=== PATIENT | female | born 1950 | race Caucasian/White ===

== ENCOUNTER → 2022-06-14 11:20 | Outpatient (CLI) | payer OTHER, SELFPAY ==
--- NOTE | ~2022-06-14 | MM_ITS ---
EXAMINATION: MM screening [facility] BI w héctor HISTORY: Screening TECHNIQUE: Craniocaudal and mediolateral oblique 3-D tomosynthesis images were obtained and synthetic 2-D images were generated. CAD analysis was submitted and interpreted. COMPARISON: Comparison to multiple prior studies sequentially, with oldest reviewed study dated 03/2017. BREAST PARENCHYMAL COMPOSITION: There are scattered areas of fibroglandular density. FINDINGS: There is no evidence of suspicious mass, calcification, or architectural distortion to sugg est malignancy in either breast. There has been no suspicious interval change. IMPRESSION: 1. No mammographic evidence of malignancy. 2. Recommend routine screening mammography in one year. BI-RADS Category 1: Negative Reviewed, dictated and finalized at [facility].
== END ==
PROVIDERS: PCP Family Medicine Adolescent Medicine; Visit Provider Family Medicine Adolescent Medicine
DX: Z12.31 Encounter for screening mammogram for malignant neoplasm of breast (principal)
CPT/HCPCS: 77063; 77067

== ENCOUNTER 2022-07-14 11:40 | Emergency (ER) | payer OTHER, SELFPAY ==
--- NOTE | ~2022-07-14 | CT_ITS ---
EXAMINATION: CT brain wo con DATE: 07/14/2022 13:26 INDICATION: Patient fell today and struck head on door. Posterior swelling TECHNIQUE: Computed tomography (CT) of the head was performed without intravenous contrast. The mA wa s adjusted according to patient size. Iterative reconstruction technique was employed. Exam dose: 60 5.33 mGy-cm total exam DLP. COMPARISON: None FINDINGS: No intracranial mass lesion or hemorrhage or cerebrovascular accident. No midline shift or mass effect. Normal ventricular size. Bilateral carotid siphon internal carotid artery calcifications. No subdural or epidural hematoma. The mastoid air cells and included paranasal sinuses are normally developed and aerated. Mild posterior right parietal cephalhematoma. No fracture or bone destruction of the cranial vault. N o intracranial coup or contrecoup injury is noted. IMPRESSION: Mild posterior right parietal cephalohematoma; no skull fracture or acute intracranial f inding Cerebral atherosclerosis Reviewed, dictated and finalized at [facility] Reviewed, dictated and finalized at [facility]. [employer] WORK[employer] IMPRESSION: Mild posterior right parietal cephalohematoma; no skull fracture o r acute intracranial finding Cerebral atherosclerosis
[2022-07-14 11:41] VITALS: BP 163/80; PULSE 65; RESP 18; TEMP 36.8; O2SAT 100
--- NOTE | 2022-07-14 13:26 | PC.NURSE ---
Patient off unit to CT.
--- NOTE | 2022-07-14 14:14 | ED.FALL ---
HPI - Fall General Chief Complaint: Fall Stated Complaint: fall Time Seen by Provider: 07/14/22 13:12 History of Present Illness HPI Narrative: Pt slipped on mat at work and fell. Pt landed on bottom and then struck head on wall. Pt denies LOC or neck pain. Pt says she has bump on back of head. Pt feels a little sore in her shoulders but thinks she just got jose manuel with the fall. Pt ambulatory without pain. Related Data Allergies Allergy/AdvReac Type Severity Reaction Status Date / Time No Known Allergies Verified 07/14/22 11:49 Review of Systems Review of Systems: All systems reviewed & are unremarkable except as noted in HPI and below PMFSH Surgical History Surgical History (Updated 03/29/22 @ 09:24 by Jasper Farias MD) H/O: hysterectomy Still has ovaries Family History Family History (Updated 03/29/22 @ 08:41 by Palmira Peguero MA) Father Family history of cardiovascular disease, Onset Age: 72 Acute myocardial infarction Heart disease Hypertension Daughter Asthma Sibling Carcinoma of colon Colon polyp Grandparent Cerebrovascular accident Diabetes mellitus Son Depression Social History Social History (Updated 03/29/22 @ 08:41 by Palmira Peguero MA) Smoking status: Former smoker Second hand tobacco smoke exposure: Yes Smoking end date: 08/29/80 Alcohol intake: never Substance use: never Substance use type: does not use Gender identity (if verbalized by the patient): Female Sexual Orientation (if Verbalized by the Patient): Straight or Heterosexual Spiritual care concerns: No Agree to blood products: Yes Exam Const: General: healthy appearing Nutritional Appearance: well nourished Orientation/consciousness: patient oriented x3 Limitations: no limitations HENMT: Head: hematoma right occipital Mouth: Yes Normal oral and palatal mucosa present Eyes: Pupils: Equal, round and reactive pupils present EOM: EOMs intact bilaterally Resp: Effort & Inspection: normal respiratory effort Auscultation: clear to auscultation bilaterally Cardio: Rate: regular rate Rhythm: regular rhythm GI: Auscultation: normal bowel sounds Skin: General skin exam: normal color Rashes: no rashes Neuro: General: patient oriented x3, moves all extremities, no meningeal signs, no focal motor deficits and CN's II-XI intact bilaterally Cranial nerves: Yes Nystagmus not present Speech: normal speech Gait exam (Neuro): Normal gait present Extrem: General: normal to inspection and no clubbing, cyanosis or edema Psych: Mental Status: mental status grossly normal Affect: normal affect Attitude: cooperative Course Vital Signs Vital signs: Vital Signs Temperature 98.2 F 07/14/22 11:41 Pulse Rate 65 07/14/22 11:41 Respiratory Rate 18 07/14/22 11:41 Blood Pressure 163/80 H 07/14/22 11:41 Pulse Oximetry 100 07/14/22 11:41 Temperature 98.2 F 07/14/22 11:41 Pulse Rate 65 07/14/22 11:41 Respiratory Rate 18 07/14/22 11:41 Blood Pressure 163/80 H 07/14/22 11:41 Pulse Oximetry 100 07/14/22 11:41 Discharge Plan Discharge Clinical Impression: Head injury, Hematoma Patient Disposition: Home, Self-Care Condition: Stable Instructions: Antibiotic Form, Concussion (ED), Head Injury (ED) Prescriptions: No Action atorvastatin 40 mg tablet 40 mg PO DAILY Qty: 90 1RF Follow-up/Referrals: Jasper Farias MD [Primary Care Provider] -
== END 2022-07-14 14:46 | disposition home or self-care (01) ==
PROVIDERS: Emergency Provider Emergency Medicine; PCP Family Medicine Adolescent Medicine
DX: S00.03XA Contusion of scalp, initial encounter (principal); W01.0XXA Fall on same level from slipping, tripping and stumbling without subsequent striking against object, initial encounter
CPT/HCPCS: 70450; 99284

== ENCOUNTER 2024-11-20 21:45 | Emergency (ER) | payer MEDICARE, SELFPAY ==
--- OUTSIDE RECORDS SUMMARY | 2024-11-20 21:48 | XMS_ITS | Clinical Summary ---
Author Organization [facility] Address [address] [place] [id number] Care Team Providers Care Advertising Clerk Name Role Phone Unavailable Primary Care Provider Unavailabl e Allergies No known active allergies Medications hydrocortisone 1 % creamIndications :Eczema, unspecified type Apply topically 2 (two) times daily. 120 g 0 Active Active Problems Problem Noted Date Diagnosed Date Heart murmur 10/19/2019 Eczema, unspecified type 10/19/2019 Insomnia, unspecified type 10/19/2019 Overweight 10/19/2019 Hyperlipidemia, unspecified hyperlipidemia type 10/19/2019 Immunizations Name Administration Dates Next Due Influenza Adult (Generic) 10/12/2019(Deferred: P atient Refused) Family History Medical History Relation Comments Heart Disease Father Hyperlipidemia Father Diabetes Maternal Grandfather Heart Disease Maternal Grandmother Hypertension Mother Osteoporosis Mother Relation Status Comments Father Maternal Grandfather Maternal Grandmother Mother Social History Tobacco Use Types Packs/Day Years Used Date Smoking Tobacco: Former Cigarettes 3 20 1 961 - 1980 Smokeless Tobacco: Never Alcohol Use Standard Drinks/Week Comments Never 0 (1 standard drink = 0.6 oz pur e alcohol) AUDIT-C Answer Date Recorded Frequency of Alcohol Consumption Never 10/19/2019 Average Number of Drinks Not on file 020 Frequency of Binge Drinking Not on file 09/30 PHQ-2 Answer Date Recorded PHQ-2 Score 0 10/12/2019 Comments Unknown Sex and Gender Information Value Date Recorded Sex Assigned at Not on file Legal Sex Female 3:00 PM CDT Gender Identity Not on file Sexual Orientation Not on file Last Filed Vital Signs Vital Sign Reading Time Taken Comments Blood Pressure 132/64 10/19/2019 10:11 AM [employer] Pulse 70 10/19/2019 10:11 AM [employer] Temperature - - Respiratory Rate - - Oxygen Saturation 98% 10/19/2019 10:11 AM [employer]ER Inhaled Oxygen Concentration - - Weight 73.5 kg (162 lb) 10/19/2019 10:11 AM [employer] Height 157.5 cm (5' 2 ) 10/19/2019 10:11 AM [employer] CLE[employer]ER Body Mass Index 29.63 10/19/2019 10:11 AM KIL[employer] CLE[employer]ER Plan of Treatment Health Maintenance Due Date Last Done Comments Colorectal Cancer Screening Colonoscopy (10 Years) 1950 Hepatitis C 1968 DTaP, Tdap and Td Vaccines ( 1 - Tdap) 1969 Mammogram Screening 1990 Zoster Vaccines (1 of 2) 2000 Annual Medicare Wellness Visit 2015 Dexa Scan (General) 2015 Pneumococcal Vaccine: 65+ Ye ars (1 of 1 - PCV) 2015 COVID-19 Vaccine (2023-2 5 season) 2024 Influenza Adult (#1) 2024 RSV Immunization or 60+ Years (1 - 1-dose 75+ series) 2025 Meningococcal B Vaccine Aged Out No l onger eligible based on patient's age to complete this topic Meningococcal Vaccine Aged Out No rinku mariel eligible based on patient's age to complete this topic RSV Immunizations Under 20 Months Aged Out No longer eligible based on patient's age to complete this topic Insurance ESSENCE
--- OUTSIDE RECORDS SUMMARY | 2024-11-20 21:48 | XMS_ITS | Data Portability ---
Author Organization [facility], Main Office Address [address] [place] [address] Assessment No assessment recorded. Plan of Treatment Reminders Order Date Submit Date Provider Last Modified By Organization Details Last Modified Time Details Appointments None recorded. Lab vitamin B12 + folate, serum or blood 024 [facility] [place] 2 [facility] (Lab), [address] [place], [address], 4 10:25:10 vitamin D3, 25-hydrox y, serum [address] (Lab), [address] [place], [address], 4 10:25:11 magnesium , serum or plasma 024 024 [facility] (Lab), [address] [place], [address], 4 08:20:40 lipid panel, serum 024 024 [facility] (Lab), [address] [place], [address], 4 08:20:37 CBC w/ auto diff 024 024 [facility] (Lab), [address] [place], [address], 4 08:20:36 TSH, serum or plasma [address] (Lab), [address] [place], [address], 4 10:25:10 glycohemo globin, total, blood 024 024 [email or web address] 2 [facility] (Lab), [address] [place], [address], 4 10:25:10 C[facility], serum or plasma [facility] [address] [place], [address], 4 08:20:37 Referral None recorded. Procedures None recorded. Surgeries None recorded. Imaging None recorded. Medication Orders None recorded. Patient TargetsNo targets recorded. Patient InstructionsNo instructions recorded. Reason for Referral None Reported. Results Created Date Observation Date Name Description Value Unit Range Abnormal Flag Note LastModifiedBy Organization Detail LastModifiedTime 05/18/20 24 05/18/2024 CBC WITH DIFFE RENTI AL/PL ATELE T WBC 6.7 x10e3 /uL 3.4-10 .8 normal Not Available [facility] ([facility]) [address] [place], [address], 05/19/2024 08:20:36 05/18/20 24 05/18/2024 CBC WITH DIFFE RENTI AL/PL ATELE T RBC 4.23 x10e6 /uL 3.77-5 .28 normal Not Available [facility] ([facility]) [address] [place], [address], 05/19/2024 08:20:36 05/18/20 24 05/18/2024 CBC WITH DIFFE RENTI AL/PL ATELE T hemoglobin 12.4 g/dL 11.1-1 5.9 normal Not Available [facility] ([facility]) [address] [place], [address], 05/19/2024 08:20:36 05/18/20 24 05/18/2024 CBC WITH DIFFE RENTI AL/PL ATELE T hematocrit 39.2 % 34.0-4 6.6 normal Not Available [facility] ([facility]) [address] [place], [address], 05/19/2024 08:20:36 05/18/20 24 05/18/2024 CBC WITH DIFFE RENTI AL/PL ATELE T MCV 93 fL 79-97 normal Not Available [facility] ([facility]) [address] [place], [address], 05/19/2024 08:20:36 05/18/20 24 05/18/2024 CBC WITH DIFFE RENTI AL/PL ATELE T MCH 29.3 pg 26.6-3 3.0 normal Not Available [facility] ([facility]) [address] [place], [address], 05/19/2024 08:20:36 05/18/20 24 05/18/2024 CBC WITH DIFFE RENTI AL/PL ATELE T MCHC 31.6 g/dL 31.5-3 5.7 normal Not Available [facility] ([facility]) [address] [place], [address], 05/19/2024 08:20:36 05/18/20 24 05/18/2024 CBC WITH DIFFE RENTI AL/PL ATELE T RDW 13.1 % 11.7-1 5.4 Not Available [facility] ([facility]) [address] [place], [address], 05/19/2024 08:20:36 05/18/20 24 05/18/2024 CBC WITH DIFFE RENTI AL/PL ATELE T platelets 237 x10e3 /uL 150-45 0 normal Not Available [facility] ([facility]) [address] [place], [address], 05/19/2024 08:20:36 05/18/20 24 05/18/2024 CBC WITH DIFFE RENTI AL/PL ATELE T neutrophils 64 % not estab. normal Not Available [facility] ([facility]) [address] [facility], [place], [address], 05/19/2024 08:20:36 05/18/20 24 05/18/2024 CBC WITH DIFFE RENTI AL/PL ATELE T lymphs 25 % not estab. normal Not Available [facility] ([facility]) [address] [facility], [place], [address], 05/19/2024 08:20:36 05/18/20 24 05/18/2024 CBC WITH DIFFE RENTI AL/PL ATELE T monocytes 6 % not estab. normal Not Available [facility] ([facility]) [address] [facility], [place], [address], 05/19/2024 08:20:36 05/18/20 24 05/18/2024 CBC WITH DIFFE RENTI AL/PL ATELE T eos 4 % not estab. normal Not Available [facility] ([facility]) [address] [facility], [place], [address], 05/19/2024 08:20:36 05/18/20 24 05/18/2024 CBC WITH DIFFE RENTI AL/PL ATELE T basos 1 % not estab. normal Not Available [facility] ([facility]) [address] [facility], [place], [address], 05/19/2024 08:20:36 05/18/20 24 05/18/2024 CBC WITH DIFFE RENTI AL/PL ATELE T immature cells [employer] Not Available [facility] ([facility]) [address] [facility], [place], [address], 05/19/2024 08:20:36 05/18/20 24 05/18/2024 CBC WITH DIFFE RENTI AL/PL ATELE T neutrophils (absolute) 4.2 x10e3 /uL 1.4-7. 0 normal Not Available [facility] ([facility]) [address] [facility], [place], [address], 05/19/2024 08:20:36 05/18/20 24 05/18/2024 CBC WITH DIFFE RENTI AL/PL ATELE T lymphs (absolute) 1.7 x10e3 /uL 0.7-3. 1 normal Not Available [facility] ([facility]) [address] [facility], [place], [address], 05/19/2024 08:20:36 05/18/20 24 05/18/2024 CBC WITH DIFFE RENTI AL/PL ATELE T monocytes(ab solute) 0.4 x10e3 /uL 0.1-0. 9 normal Not Available [facility] ([facility]) [address] [facility], [place], [address], 05/19/2024 08:20:36 05/18/20 24 05/18/2024 CBC WITH DIFFE RENTI AL/PL ATELE T eos (absolute) 0.3 x10e3 /uL 0.0-0. 4 normal Not Available [facility] ([facility]) [address] [facility], [place], [address], 05/19/2024 08:20:36 05/18/20 24 05/18/2024 CBC WITH DIFFE RENTI AL/PL ATELE T baso (absolute) 0.1 x10e3 /uL 0.0-0. 2 normal Not Available [facility] ([facility]) [address] [place], [address], 05/19/2024 08:20:36 05/18/20 24 05/18/2024 CBC WITH DIFFE RENTI AL/PL ATELE T immature granulocytes 0 % not estab. Not Available [facility] ([facility]) [address] [facility], [place], [address], 05/19/2024 08:20:36 05/18/20 24 05/18/2024 CBC WITH DIFFE RENTI AL/PL ATELE T immature grans (abs) 0.0 x10e3 /uL 0.0-0. 1 Not Available [facility] ([facility]) [address] [facility], [place], [address], 05/19/2024 08:20:36 05/18/20 24 05/18/2024 CBC WITH DIFFE RENTI AL/PL ATELE T NRBC [employer] Not Available [facility] ([facility]) [address] [facility], [place], [address], 05/19/2024 08:20:36 05/18/20 24 05/18/2024 CBC WITH DIFFE RENTI AL/PL ATELE T hematology comments: [employer] Not Available [facility] ([facility]) [address] [facility], [place], [address], 05/19/2024 08:20:36 05/18/20 24 05/19/2024 COMP. METAB OLIC PANEL (14) glucose 99 mg/dL 70-99 normal Not Available [facility] ([facility]) [address] [facility], [place], [address], 05/19/2024 08:20:37 05/18/20 24 05/19/2024 COMP. METAB OLIC PANEL (14) BUN 13 mg/dL 8-27 normal Not Available [facility] ([facility]) [address] [place], [address], 05/19/2024 08:20:37 05/18/20 24 05/19/2024 COMP. METAB OLIC PANEL (14) creatinine 0.81 mg/dL 0.57-1 .00 normal Not Available [facility] ([facility]) [address] [place], [address], 05/19/2024 08:20:37 05/18/20 24 05/19/2024 COMP. METAB OLIC PANEL (14) eGFR 76 mL/mi n/1.7 3 >59 normal Not Available [facility] ([facility]) [address] [place], [address], 05/19/2024 08:20:37 05/18/20 24 05/19/2024 COMP. METAB OLIC PANEL (14) BUN/creatini ne ratio 16 12-28 normal Not Available [facility] ([facility]) [address] [place], [address], 05/19/2024 08:20:37 05/18/20 24 05/19/2024 COMP. METAB OLIC PANEL (14) sodium 142 mmol/ L 134-14 4 normal Not Available [facility] ([facility]) [address] [place], [address], 05/19/2024 08:20:37 05/18/20 24 05/19/2024 COMP. METAB OLIC PANEL (14) potassium 4.1 mmol/ L 3.5-5. 2 normal Not Available [facility] ([facility]) [address] [facility] [place], [address], 05/19/2024 08:20:37 05/18/20 24 05/19/2024 COMP. METAB OLIC PANEL (14) chloride 106 mmol/ L 96-106 normal Not Available [facility] ([facility]) [address] [facility] [place], [address], 05/19/2024 08:20:37 05/18/20 24 05/19/2024 COMP. METAB OLIC PANEL (14) carbon dioxide, total 24 mmol/ L 20-29 normal Not Available [facility] ([facility]) [address] [facility] [place], [address], 05/19/2024 08:20:37 05/18/20 24 05/19/2024 COMP. METAB OLIC PANEL (14) calcium 9.1 mg/dL 8.7-10 .3 normal Not Available [facility] ([facility]) [address] [facility] [place], [address], 05/19/2024 08:20:37 05/18/20 24 05/19/2024 COMP. METAB OLIC PANEL (14) protein, total 6.6 g/dL 6.0-8. 5 normal Not Available [facility] ([facility]) [address] [facility] [place], [address], 05/19/2024 08:20:37 05/18/20 24 05/19/2024 COMP. METAB OLIC PANEL (14) albumin 4.0 g/dL 3.8-4. 8 normal Not Available [facility] ([facility]) [address] [facility] [place], [address], 05/19/2024 08:20:37 05/18/20 24 05/19/2024 COMP. METAB OLIC PANEL (14) globulin, total 2.6 g/dL 1.5-4. 5 Not Available [facility] ([facility]) [address] [facility] [place], [address], 05/19/2024 08:20:37 05/18/20 24 05/19/2024 COMP. METAB OLIC PANEL (14) bilirubin, total 0.2 mg/dL 0.0-1. 2 normal Not Available [facility] ([facility]) [address] [facility] [place], [address], 05/19/2024 08:20:37 05/18/20 24 05/19/2024 COMP. METAB OLIC PANEL (14) alkaline phosphatase 75 IU/L 44-121 normal Not Available [facility] ([facility]) [address] [facility] [place], [address], 05/19/2024 08:20:37 05/18/20 24 05/19/2024 COMP. METAB OLIC PANEL (14) AST (SGOT) 29 IU/L 0-40 normal Not Available [facility] ([facility]) [address] [facility] [place], [address], 05/19/2024 08:20:37 05/18/20 24 05/19/2024 COMP. METAB OLIC PANEL (14) ALT (SGPT) 15 IU/L 0-32 normal Not Available [facility] ([facility]) [address] [facility] [place], [address], 05/19/2024 08:20:37 05/18/20 24 05/19/2024 LIPID PANEL cholesterol, total 231 mg/dL 100-19 9 above high normal Not Available [facility] ([facility]) [address] [facility] [place], [address], 05/19/2024 08:20:37 05/18/20 24 05/19/2024 LIPID PANEL triglyceride s 133 mg/dL 0-149 normal Not Available [facility] ([facility]) [address] [place], [address], 05/19/2024 08:20:37 05/18/20 24 05/19/2024 LIPID PANEL HDL cholesterol 58 mg/dL >39 normal Not Available [facility] ([facility]) [address] [facility] [place], [address], 05/19/2024 08:20:37 05/18/20 24 05/19/2024 LIPID PANEL VLDL cholesterol cruzito 24 mg/dL 5-40 Not Available [facility] ([facility]) [address] [place], [address], 05/19/2024 08:20:37 05/18/20 24 05/19/2024 LIPID PANEL LDL chol calc ([facility]) 149 mg/dL 0-99 above high normal Not Available [facility] ([facility]) [address] [place], [address], 05/19/2024 08:20:37 05/18/20 24 05/19/2024 LIPID PANEL LDL calc comment: [employer] Not Available [facility] ([facility]) [address] [place], [address], 05/19/2024 08:20:37 05/18/20 24 05/19/2024 HEMOG LOBIN A1C hemoglobin A1C 5.5 % 4.8-5. 6 normal Predi abete s: 5.7 - 6.4 Diabe norah: >6.4 Glyce allegra contr ol for adult s with diabe norah: <7.0 Not Available [facility] ([facility]) [address] [place], [address], 05/19/2024 08:20:38 05/18/20 24 05/19/2024 TSH TSH 1.250 uIU/m L 0.450- 4.500 normal Not Available [facility] ([facility]) [address] [facility], [place], [address], 05/19/2024 08:20:38 05/18/20 24 05/19/2024 VITAM IN D, 25-HY DROXY vitamin D, 25-hydroxy 20.8 NG/mL 30.0-1 00.0 below low normal Vitam in D defic iency has been defin ed by the Insti tute of Medic ine and an Endoc rine Socie ty pract ice guide line as a level of serum 25-OH vitam in D less than 20 ng/mL (1,2) . The Endoc rine Socie ty went on to [facility] er defin e vitam in D insuf ficie ncy as a level betwe en 21 and 29 ng/mL (2). 1. IOM (Inst itute of Medic ine). 2009. Dieta ry refer ence luzmaria es for calci um and D. Chandana genao [place]: The Natio nal [facility] . 2. Cody restrepo MF, Tono wiggins [place], Francoise off-F errar i HENRIQUEZ, et al. Evalu ation , treat ment, and preve ntion of vitam in D defic iency : an Endoc rine Socie ty clini cruzito pract ice guide line. JCEM. 2010; 96(7) :1911 -30. Not Available [facility] ([facility]) [address] [facility], [place], [address], 05/19/2024 08:20:39 05/18/20 24 05/19/2024 VITAM IN B12 vitamin B12 427 pg/mL 232-12 45 normal Not Available [facility] ([facility]) [address] [facility], [place], [address], 05/19/2024 08:20:39 05/18/20 24 05/19/2024 MAGNE SIUM magnesium 2.2 mg/dL 1.6-2. 3 normal Not Available [facility] ([facility]) [address] [facility], [place], [address], 05/19/2024 08:20:40 Result Notes None recorded. Problems Name Problem SNOMED Code Status Onset Date Resolution Date Notes Provider Name and Address Organization Details Recorded Time Foot callus 019098495 Active 2021 Not Available [facility] 3 16:11:07 Rosacea 407004246 Active Not Available [facility] 3 16:11:07 Multiple skin tags 015285266 Active Not Available [facility] 3 16:11:07 Hyperlipidemi a 77149902 Active Not Available [facility] 3 16:11:07 Urinary tract infectious disease 70319973 Active Not Available [facility] 3 16:11:08 Dystrophia unguium 14977933 Active 2021 Not Available [facility] 3 16:11:08 Adult health examination Active 2023 MEGHNA Diaz [address], [place], [address] , [employer] [facility] [employer] 4 10:29:57 At increased risk of nutritional deficit 973058574 Active 2023 MEGHNA Diaz [address], [place], [address] , [employer] [facility] [employer] 4 10:32:36 Vitamin D below reference range 403152811 Active 2023 MEGHNA Diaz [address], [place], [address] , [facility] 4 22:28:47 Problem Notes None recorded. Procedures Surgical History Date Name Laterality Status Provider Name and Address Organization Details Recorded Time Hysterectomy, Partial completed Not Available [facility] 10/27/2022 16:10:49 Imaging Results None recorded. Procedure Notes None recorded. Medical Equipment None Reported. Allergies No known drug allergies Medications Name Sig Start Date Stop Date Status Note LastModified by Organization Details LastModified Time ammonium lactate 12 % lotion Apply 1 applicati on every day by topical route as needed. 05/18 completed Not Available Not Available Not Available desoximetas one 0.05 % topical cream APPLY A THIN LAYER TO THE AFFECTED AREA(S) BY TOPICAL ROUTE 2 TIMES PER DAY ; RUB IN GENTLY AND COMPLETEL Y 05/18 completed Not Available Not Available Not Available triamcinolo ne acetonide 0.1 % topical cream APPLY A THIN LAYER TO THE AFFECTED AREA(S) BY TOPICAL ROUTE 2 TIMES PER DAY 05/18 completed Not Available Not Available Not Available cephalexin 500 mg capsule active Not Available Not Available Not Available rosuvastati n 10 mg tablet Take 1 tablet every day by oral route in the morning for 30 days, for high chol. 2023 active Not Available Not Available Not Avai lable cholecalcif karen (vitamin D3) 25 mcg (1,000 unit) tablet Take 1 tablet every day by oral route with meal(s) for 30 days. 2023 active Not Available Not Available Not Avai lable Vitals Date Recorded Heart rate Systolic blood pressure Diastolic blood pressure Provider Name and Address Organization Details Last Updated DateTime 05/17/2022 77 /min 144 mm[Hg] 70 mm[Hg] Not Available [facility] 10/27/2022 16:10:55 Date Recorded Body weight Body temperature Heart rate Oxygen saturation Oxygen saturation in Arterial blood by Pulse oximetry Systolic blood pressure Diastolic blood pressure Provider Name and Address Organization Details Last Updated DateTime 4 56565.6 3 g 98 [degF] 88 /min 97 % 97 % 158 mm[Hg] 68 mm[Hg] Lisa Newby RN [facility] 4 10:20:04 Social History Question Answer Notes LastModified by Organizat ion Details LastModified Time Tobacco Smoking Status Former Smoker Lisa Newby RN null, [place] [facility] 05/18/2024 10:18:01 What Is Your Occupation? Michael [id number] Information not available 10/27/2022 Sex: Unknown Functional Status None recorded. Mental Status None recorded. Family History Relationship Description Onset Age of this Age Resolved Age Notes LastModified by Organization Details LastModified Time Paternal Grandfather Diabetes mellitus [id number] Not available 10/27/2022 16:10:49 Maternal Grandmother Family history of stroke [id number] Not available 10/27/2022 16:10:49 Father Heart disease [id number] Not available 10/27/2022 16:10:49 Sister Family history of malignant neoplasm [id number] Not available 10/27/2022 16:10:49 Mother Osteoporosis [email or web address] [id number] Not available 10/27/2022 16:10:49 Medical History Condition Response ANEMIA/BLOOD DISORDER Y HIGH CHOLESTEROL / HYPERLIPIDEMIA Y Gynecological HistoryNo gynecological history recorded. Obstetrics History GPAL:G 0 P 0 0 0 0 Past Encounters Encounter ID Performer Location Encounter Start Date Encounter Closed Date Diagnosis/Indication Diagnosis SNOMED-CT Code Diagnosis ICD10 Code Diagnosis Note [id number] [facility] Podiatry [place] [address] [facility], [address] [place] [address] 05/17/2022 00:00:00 05/17/2022 11:43:28 [id number] MEGHNA Diaz [facility] Family Practice Manuela hatch [address] [facility] [address] [facility] [place] [place] [address] 05/18/2024 09:57:30 05/18/2024 10:35:16 Hyperlipidemia 72068729 E78.5 Adult heal th examination 430801413 Z00.00 At [facility] ed risk of nutritional deficit 185428527 Z91.89 Multiple skin tags 35332 7009 L91.8 Rosacea 132188634 L71.9 Health Concerns Section Related Observation LastModified by Organization Detai ls LastModified Time None Recorded Concern Status LastModified by Organization Details LastModified Time None Recorded Advance Directives Directive None Recorded Payers Encounter Date Sequence Insurance Name Policy Number Policy Lujan Covered Member ID Lujan Member ID Guarantor Name 05/18/2024 1 [facility] (MEDICARE REPLACEMENT/A DVANTAGE - HMO) [id number] Kortney Wolf [id number] Kortney Wolf Notes Date Note Type Note Provider Name and Address Organization Details Recorded Time 05/18/2024 text/html high chol by history , not on meds Edward MEGHNA Mcintosh [address] [facility], [facility] [address], [place], [address], [facility] 06/04/2024 22:27:26 OBGyn Episode No OBEpisode recorded.
[2024-11-20 21:54] VITALS: BP 150/79; PULSE 78; RESP 16; TEMP 36.3; O2SAT 98
--- OUTSIDE RECORDS SUMMARY | 2024-11-21 00:40 | XMS_ITS | Clinical Summary ---
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 Name Role Phone Unavailable Primary Care Provider [...] Comments Blood Pressure 132/64 10/19/2019 10:11 AM [employer] STITCHER Pulse 70 10/19/2019 10:11 AM [employer] Temperature - - Respiratory Rate - - Oxygen Saturation 98% 10/19/2019 10:11 AM [employer] Inhaled Oxygen Concentration - - Weight 73.5 kg (162 lb) 10/19/2019 10:11 AM [employer] Height 157.5 cm (5' 2 ) 10/19/2019 10:11 AM [employer] Body Mass Index 29.63 10/19/2019 10:11 AM [employer] STITCHER Plan of Treatment Health Maintenance Due Date [...]
--- NOTE | 2024-11-21 00:51 | ED_ITS ---
HPI - Skin/Abscess/Foreign Bdy General Chief complaint: Skin/Abscess/Foreign Body Stated complaint: Skin rash-possible allergic reaction Time Seen by Provider: 11/21/24 00:29 Source: patient Mode of arrival: ambulatory Limitations: no limitations History of Present Illness HPI narrative: This is a 74-year-old female who presents to the ED for chief complaint of rash to the right abdomen and right side of the back. Patient states the rash is painful. She 1st noticed this about 48 hours ago. States there are blistering lesions. Denies fevers, chills or other systemic symptoms. Related Data Allergies Allergy/AdvReac Type Severity Reaction Status Date / Time No Known Allergies Allergy Verified 11/21/24 01:11 Review of Systems Review of Systems: All systems as dictated in [facility] Surgical History Surgical History (Updated 03/29/22 @ 09:24 by Jasper Farias MD) H/O: hysterectomy Still has ovaries Family History Family History (Updated 03/29/22 @ 08:41 by Palmira Peguero MA) Father Family history of cardiovascular disease, Onset Age: 72 Acute myocardial infarction Heart disease Hypertension Daughter Asthma Sibling Carcinoma of colon Colon polyp Grandparent Cerebrovascular accident Diabetes mellitus Son Depression Social History Social History (Updated 03/29/22 @ 08:41 by Palmira Peguero MA) Smoking status: Former smoker Second hand tobacco smoke exposure: Yes Smoking end date: 08/29/80 Alcohol intake: never Substance use: never Substance use type: does not use Living arrangements: alone Occupation/Education: occupation Gender identity (if verbalized by the patient): Female Sexual Orientation (if Verbalized by the Patient): Straight or Heterosexual Spiritual care concerns: No Agree to blood products: Yes Exam Narrative: GENERAL: Well-appearing, well-nourished, and in no acute distress. HEAD: Normocephalic, atraumatic. EYES: PERRLA and EOMI. ENT: Nares clear, no rhinorrhea or epistaxis. Mucous membranes moist. Oropharynx without tonsillar hypertrophy exudate or other lesions. NECK: Supple. No adenopathy or masses. CHEST: No respiratory distress. Clear to auscultation. No wheezes rales or rhonchi HEART: Regular rate and rhythm. No murmur heard. Normal peripheral pulses. ABDOMEN: Soft, nontender, nondistended, normal active bowel sounds. MSK: Normal range of motion. No edema. SKIN: Blistering rash to the T10 dermatome of the abdomen on the right side. No open lesions noted. NEURO: Alert and oriented x4. No focal deficits. PSYCH: Normal mood and affect. Course Vital Signs Vital signs: Vital Signs Temperature 97.4 F L 11/20/24 21:54 Pulse Rate 78 11/20/24 21:54 Respiratory Rate 16 11/20/24 21:54 Blood Pressure 150/79 H 11/20/24 21:54 Pulse Oximetry 98 11/20/24 21:54 Oxygen Delivery Room Air 11/20/24 21:54 Temperature 97.4 F L 11/20/24 21:54 Pulse Rate 75 11/21/24 01:53 Respiratory Rate 16 11/21/24 01:53 Blood Pressure 155/63 H 11/21/24 01:53 Pulse Oximetry 98 11/21/24 01:53 Oxygen Delivery Room Air 11/21/24 01:11 MDM - Skin/Abscess/Foreign Bdy MDM Narrative Medical decision making narrative: This is a 74-year-old female who presents to the ED for chief complaint of blistering painful rash to the right side of the abdomen and back. Vitals are normal. Exam remarkable for the above and shows shingles today. Patient will be placed on Valtrex. She was given dressings as well as lidocaine patches here. Rx for [place] for breakthrough pain. Patient will be discharged in stable condition. Supportive measures discussed and return precautions given. Patient is understanding and agreeable with plan for discharge with PCP follow-up. Differential Diagnosis Differential diagnosis: Likely abscess of skin or subcutaneous tissue, viral exanthem, dermatophytosis, urticaria, herpes zoster, allergic reaction to drug, cellulitis and contact dermatitis Discharge Plan Discharge Clinical Impression: Shingles Patient Disposition: Home, Self-Care Condition: Stable Instructions: Antibiotic Form Additional Instructions: Your exam today shows evidence of shingles. Please take Valtrex as prescribed. Use [place] sparingly for breakthrough pain. Control pain at baseline with 500 mg of Tylenol every 6 hours. Follow-up with your family doctor for this rash. If you have any new or worsening symptoms please return to the ER for further evaluation. Patient Language: Swedish Prescriptions: New valacyclovir [Valtrex] 1 gram tablet 1,000 mg PO Q8H 7 Days Qty: 21 0RF hydrocodone-acetaminophen 5-325 mg tablet 1 tablet PO Q8H PRN (Reason: pain) Qty: 14 0RF No Action atorvastatin 40 mg tablet 40 mg PO DAILY Qty: 90 1RF Follow-up/Referrals: PHYSICIAN NOT ON STAFF,NONSTAFF [Primary Care Provider] - Time of Disposition: 01:01
[2024-11-21 01:11] VITALS: BP 129/93; PULSE 71; RESP 16; O2SAT 98
[2024-11-21 01:16] VITALS: BP 155/63; PULSE 75; RESP 16; O2SAT 100
[2024-11-21] MEDS: LIDOCAINE 5% PATCH 1 PATCH TRANSDERM (01:36)
[2024-11-21] MEDS: HYDROcodone/acetaminophen (*CRX) 5-325 MG TABLET 1 TAB PO (01:36)
[2024-11-21 01:53] VITALS: BP 155/63; PULSE 75; RESP 16; O2SAT 98
== END 2024-11-21 01:57 | disposition home or self-care (01) ==
PROVIDERS: Emergency Provider Physician Assistant
DX: B02.9 Zoster without complications (principal)
CPT/HCPCS: 99283; A9270